=== PATIENT | female | born 1980 | race Caucasian/White ===

== ENCOUNTER 2016-09-13 15:32 | Emergency (ER) | payer OTHER ==
[2016-09-13] MEDS ORDERED: Sodium Chloride 0.9% 10 ML Syringe FLUSH PRN (15:46)
[2016-09-13] MEDS ORDERED: Ketorolac 30 MG/ML SDV IVPUSH ONE (15:46)
--- NOTE | 2016-09-13 16:17 | EDM.PDOC ---
[id number] 4d KIDNEY PAIN Time Seen by Provider: 09/13/16 15:50 Source of Information: Reports: Patient, Family History Limitations: Reports: No Limitations - History of Present Illness INITIAL COMMENTS - FREE TEXT/NARRATIVE: 35-year-old female arrives with sudden onset of inability to urinate and intense right flank pain radiating to the right lower quadrant. The symptoms started suddenly within the last 4 hours. No fevers or chills, she's been well up until today. No history of kidney stones she knows of. No dysuria. She feels she had the inability to urinate the first 2 hours of symptoms. Some nausea but no vomiting. The pain is the worst she's ever experienced. Onset: Sudden Duration: Hour(s): (5 hours ago) Location: Reports: Back (Right flank) Quality: Reports: Sharp, Stabbing Severity: Severe Associated Symptoms: Reports: Other (Decreased urination, inability to void) right flank Pain Score (Numeric/FACES): 2 - Related Data Allergies Allergy/AdvReac Type Severity Reaction Status Date / Time Sulfa (Sulfonamide Allergy Hives Verified 09/13/16 15:44 Antibiotics) Home Meds: Home Meds Loratadine [Claritin] 10 mg PO DAILY 09/13/16 [History] Social & Family History - Tobacco Use Smoking Status *Q: Never Smoker - Alcohol Use Days Per Week of Alcohol Use: 2 Number of Drinks Per Day: 2 Total Drinks Per Week: 4 - Recreational Drug Use Recreational Drug Use: No ED ROS GENERAL - Review of Systems Review Of Systems: See Below Constitutional: Denies: Fever, Chills, Malaise HEENT: Reports: No Symptoms Respiratory: Denies: Shortness of Breath Cardiovascular: Denies: Chest Pain GI/Abdominal: Reports: Abdominal Pain, Nausea. Denies: Vomiting : Reports: Frequency, Urgency Skin: Reports: No Symptoms Neurological: Reports: No Symptoms Psychiatric: Reports: Anxiety ED EXAM, GENERAL - Physical Exam Exam: See Below Exam Limited By: No Limitations General Appearance: Alert, Severe Distress Respiratory/Chest: No Respiratory Distress Cardiovascular: Regular Rate, Rhythm GI/Abdominal: Soft Neurological: Alert, Oriented Psychiatric: Anxious Skin Exam: Warm, Dry Course - Vital Signs Last Recorded V/S: Last Vital Signs Temp 98.1 F 09/13/16 16:06 Pulse 64 09/13/16 16:51 Resp 16 09/13/16 16:51 BP 137/84 09/13/16 16:51 Pulse Ox 98 09/13/16 16:51 - Orders/Labs/Meds Orders: Active Orders 24 hr Category Date Time Status Abdomen Pelvis wo Cont [CT] Stat Exams 09/13/16 16:12 Taken Saline Lock Insert [OM.PC] Routine Oth 09/13/16 15:46 Ordered Labs: Laboratory Tests 09/13/16 09/13/16 Range/Units 15:46 15:46 Urine Color Yellow Urine Appearance Slightly cloudy Urine pH 5.0 (4.5-8.0) Ur Specific [place] 1.020 (1.008-1.030) Urine Protein Negative (NEGATIVE) mg/dL Urine Glucose (UA) Normal (NEGATIVE) mg/dL Urine Ketones Negative (NEGATIVE) mg/dL Urine Occult Blood Moderate (NEGATIVE) Urine Nitrite Negative (NEGATIVE) Urine Bilirubin Negative (NEGATIVE) Urine Urobilinogen Normal (NORMAL) mg/dL Ur Leukocyte Esterase Moderate (NEGATIVE) Urine RBC 0-5 (0-5) Urine WBC 5-10 H (0-5) Ur Epithelial Cells Moderate Amorphous Sediment Few Urine Bacteria Few Urine Mucus Rare Urine HCG, Qual Negative Meds: Medications Discontinued Medications Generic Name Dose Route Start Last Admin Trade Name Salvadorq PRN Reason Stop Dose Admin Ketorolac Tromethamine 30 mg 09/13/16 15:46 09/13/16 16:02 Toradol IVPUSH 09/13/16 15:47 30 mg ONETIME ONE Administration Sodium Chloride 10 ml 09/13/16 15:46 09/13/16 16:03 Saline Flush FLUSH 10 ml ASDIRECTED PRN Administration Keep Vein Open Tamsulosin HCl 0.4 mg 09/13/16 16:56 09/13/16 17:04 Flomax PO 09/13/16 16:57 0.4 mg ONETIME ONE Administration - Re-Assessments/Exams Free Text/Narrative Re-Assessment/Exam: 09/13/16 16:16 A UA with urine was obtained, an IV started and the patient was given 30 mg of Toradol IV. This gave her marked improvement in pain from a 10 to a 2. After the urine was negative, she was sent back for an abdomen and pelvis CT without contrast. 09/13/16 16:58 CT confirmed a distal small ureteral stone on the left side with mild hydronephrosis. The patient's pain almost resolved by discharge. She was given one oral dose of Flomax 0.4 mg, 10 additional doses of 10 mg ketorolac to use every 6 hours as needed and 6 Vicodin. She can return anytime if symptoms return and are uncontrolled with the medications. Departure - Departure Time of Disposition: 17:32 Disposition: Home, Self-Care 01 Condition: Good Clinical Impression: Ureteric colic, Left nephrolithiasis - Discharge Information Instructions: Kidney Stones, [id number] Referrals: PCP,None [Primary Care Provider] - Forms: ED Department Discharge Care Plan Goals: Use medications as prescribed for pain control if needed. Return in 24-48 hours if not significantly improving. Return anytime sooner if worsening or unable to control the pain. Once stone is passed, stay hydrated. - My Orders Last 24 Hours: My Active Orders 09/13/16 15:46 Saline Lock Insert [OM.PC] Routine 09/13/16 16:12 Abdomen Pelvis wo Cont [CT] Stat - Assessment/Plan Last 24 Hours: My Active Orders 09/13/16 15:46 Saline Lock Insert [OM.PC] Routine 09/13/16 16:12 Abdomen Pelvis wo Cont [CT] Stat
[2016-09-13 16:52] VITALS: BP 137/84
[2016-09-13] MEDS ORDERED: Tamsulosin 0.4 MG Cap.ER PO ONE (16:56)
== END 2016-09-13 17:20 | disposition home or self-care (01) ==
LOC: JP.ED 15:32
DX: N13.2 Hydronephrosis with renal and ureteral calculous obstruction (principal); Z88.2 Allergy status to sulfonamides; Z79.899 Other long term (current) drug therapy
CPT/HCPCS: 74176; 81001; 81025; 96374; 99284; A9270; J1885; J7050